=== PATIENT | female | born 1955 | race Caucasian/White ===

== ENCOUNTER 2018-12-29 19:57 | Emergency (ER) | payer OTHER, MEDICAID ==
[~2018-12-29] VITALS: Ht 160 cm; Wt 55.6 kg
[2018-12-29 20:07] VITALS: Ht 160 cm; Wt 55.6 kg
[2018-12-29 20:42] LABS: BASOPHIL % 0.7 % (0-2); PLATELET COUNT 245 x10^3mcL (130-400); RED CELL DISTRIBUTION WIDTH 12.9 % (11.5-14.5)
[2018-12-29 20:48] LABS: CALCIUM 8.5 mg/dL (8.5-10.1); CARBON DIOXIDE 24.9 mmol/L (21-32); CHLORIDE SERUM 104 mmol/L (98-107); CREATININE SERUM 0.7 mg/dL (0.6-1.0); GFR1 > 60 mL/min; GLUCOSE SERUM 93 mg/dL (74-106); POTASSIUM SERUM 3.6 mmol/L (3.5-5.1); SODIUM SERUM 139 mmol/L (136-145)
[2018-12-29 20:52] LABS: ALKALINE PHOSPHATASE 58 U/L (46-116); ALT/SGPT 22 U/L (14-59); AST/SGOT 16 U/L (15-37); BILIRUBIN TOTAL 0.34 mg/dL (0.20-1.00); LIPASE 199 IU/L (73-393); TOTAL PROTEIN, SERUM 7.3 g/dL (6.4-8.2)
[2018-12-30 00:03] VITALS: BP 129/68
== END 2018-12-29 23:55 | disposition home or self-care (01) ==
LOC: ED 19:57
PROVIDERS: Emergency Medicine
DX: R10.30 Lower abdominal pain, unspecified (principal); R10.11 Right upper quadrant pain; R10.2 Pelvic and perineal pain; R11.0 Nausea; Z88.0 Allergy status to penicillin
CPT/HCPCS: J1885; J2405; J7030; Q9967